=== PATIENT | female | born 1950 | race Caucasian/White ===

== ENCOUNTER → 2022-02-12 | Outpatient (CLI) | payer MEDICARE, BC ==
--- NOTE | 2022-02-12 13:40 | US ---
EXAMINATION TYPE: US kidneys/renal and bladder DATE OF EXAM: 02/12/2022 COMPARISON: NONE CLINICAL HISTORY: N31.9 NEUROGENIC BLADDER. Urinary inconstance. EXAM MEASUREMENTS: Right Kidney: 10.5 x 5.3 x 5.5 cm Left Kidney: 11.1 x 5.2 x 5.0 cm Right Kidney: No hydronephrosis or masses seen, Echogenic Left Kidney: No hydronephrosis or masses seen, Echogenic. Bladder: Distended,Superior bladder diverticulum. Bilateral Jets seen: Yes Poor cortical medullary differentiation on the left. Increased cortical echogenicity on the right. Th ere is no evidence for hydronephrosis at this point in time. No nephrolithiasis is seen. Left kidney has 1.8 x 1.5 cm round anechoic lesion upper pole level favoring benign thin-walled cyst. The urina ry bladder is satisfactorily distended. Superior margin has small outpouching or diverticulum suspec nydia. No abnormal wall thickening. Bilateral ureteral jets are seen. IMPRESSION: Mildly distended bladder with small superior diverticulum. No abnormal wall thickening. E vidence of chronic medical renal disease. No hydronephrosis seen bilaterally.
== END | disposition home or self-care (01) ==
LOC: RADUSWWP 12:38
PROVIDERS: ATTEND Urology
DX: N32.89 Other specified disorders of bladder (principal); N32.3 Diverticulum of bladder
CPT/HCPCS: 76770

== ENCOUNTER 2024-12-02 11:37 | Day surgery (SDC) | payer MEDICARE, BC ==
[2024-11-30 09:37] VITALS: BMI 25.0
[~2024-12-02 11:37] MED LIST: LACTATED RINGERS 1,000 ML IV SCH
[2024-12-02] MEDS: IV FLUID CONTINUATION 1,000 ML IV ONE (12:03)
[2024-12-02 12:38] VITALS: TEMP 97.8
[2024-12-02] MEDS ORDERED: PROPOFOL 10 MG/ML 20 ML VIAL IV ONE (13:05)
[2024-12-02] MEDS ORDERED: LIDOCAINE 1% INJ 10MG/ML (20 ML MDV) ONE (13:05)
--- NOTE | 2024-12-02 13:33 | P.PCN ---
Date of Procedure: 12/02/24 Procedure(s) Performed: BRIEF HISTORY: Patient is a 74-year-old pleasant white female scheduled for an elective colonoscopy as a part of evaluation of prior history of colon polyps. She has been complaining of intermittent rectal prolapse for the last few months. PROCEDURE PERFORMED: Colonoscopy. PREOPERATIVE DIAGNOSIS: History of colon polyps. IV sedation per Anesthesia. PROCEDURE: After informed consent was obtained, the patient, was brought into the endoscopy unit. IV sedation was administered by Anesthesia under continuous monitoring. Digital rectal examination was normal. Initially the Olympus CF-160 flexible video colonoscope was then inserted in the rectum, gradually advanced into the cecum without any difficulty. Careful examination was performed as the scope was gradually being withdrawn. Ileocecal valve and the appendiceal orifice were visualized and appeared normal. Prep was fair.. Mucosa of the cecum, ascending colon, transverse colon, descending colon, sigmoid colon, appeared normal. Distal rectum there was circumferential erythema of the mucosa consistent with rectal prolapse. Retroflexion was performed in the rectum and no lesions were seen. The patient tolerated the procedure well. IMPRESSION: Normal-appearing colon from rectum to cecum with no evidence of colorectal neoplasia. Mucosal erythema in the distal rectum consistent with rectal prolapse. RECOMMENDATIONS: Findings of this examination were discussed with the patient as well as her family. She was advised to be on a high-fiber diet and take fiber supplements on a regular basis and avoid straining and constipation..
[2024-12-02 14:11] VITALS: BP 142/76; PULSE 78; RESP 18
== END 2024-12-02 14:44 | disposition home or self-care (01) ==
LOC: ORWHC2ENDO 11:37
PROVIDERS: ATTEND Internal Medicine Gastroenterology
DX: Z86.0100 Personal history of colon polyps, unspecified (principal)
CPT/HCPCS: 45378; J2003; J2704